=== PATIENT | female | born 1985 | race Caucasian/White ===

== ENCOUNTER 2024-08-29 02:11 | Emergency (ER) | payer OTHER ==
[~2024-08-29] VITALS: Ht 160 cm; Wt 59.4 kg
[2024-08-29 03:15] VITALS: BP 124/85; TEMP 98.7; O2SAT 96
== END 2024-08-29 04:08 | disposition home or self-care (01) ==
LOC: ER 02:31
DX: N39.0 Urinary tract infection, site not specified (principal); R30.0 Dysuria; Z88.1 Allergy status to other antibiotic agents; Z88.2 Allergy status to sulfonamides